=== PATIENT | male | born 1950 | race Caucasian/White ===

== ENCOUNTER → 2019-02-27 | Outpatient (CLI) | payer OTHER ==
[~2019-02-27] MED LIST: CATAPRES0.1 MG PO
== END ==
LOC: ULTRA 09:19
DX: R10.11 Right upper quadrant pain (principal)

== ENCOUNTER → 2019-03-18 | Outpatient (CLI) | payer OTHER | LOC: NUC 09:29 | DX: R10.11 Right upper quadrant pain (principal) ==

== ENCOUNTER 2019-03-29 05:21 | Observation (INO) | payer OTHER ==
[~2019-03-29] VITALS: Ht 265 cm; Wt 120.2 kg
[~2019-03-29 05:21] MED LIST changes: +AMLODIPINE BESY10 MG PO; +REFRESH PLUS1 EACH OPHTHALMIC; +VALSARTAN-HCTZ1 EAC3 PO
[2019-03-29 13:06] LABS: HEMATOCRIT 46.9 % (42.0-52.0); HEMOGLOBIN 16.2 gm/dL (14.0-18.0)
[2019-03-29 13:13] LABS: CALCIUM 9.7 mg/dL (8.5-10.1); CREATININE 0.9 mg/dL (0.7-1.3)
[2019-03-29 13:51] VITALS: BP 143/68
[2019-03-29 13:57] VITALS: BP 143/68
--- NOTE | 2019-03-29 15:52 | EKG ---
[address] [place] [address] ELECTROCARDIOGRAM REPORT Name: ARNEL BEASLEY Room #: 150-6 [facility]..#: [id number] ������������������ Admission: 03/29/19 ������������������ Attend Phys: Cheng Vizcarra MD Discharge: ������������������ Date of : 52 Report #: [id number] ����������������������������������������������������������������� [id number] THIS REPORT FOR: //name// [facility] Test Date: 2019-03-29 Test Time: 13:00:00 Pat Name: ARNEL BEASLEY Department: Room: 150 6 Gender: M Pick Up Attendant: PAN : 1950 Requested By: Cheng Vizcarra Order Number: [id number] MD: Tony Cortez Measurements Intervals Cucumber Rate: 53 P: 27 ME: 182 QRS: -37 QRSD: 160 T: 11 QT: 465 QTc: 437 Interpretive Statements Sinus rhythm Right bundle branch block Left ventricular hypertrophy Compared to ECG 03/05/2018 19:12:52 No significant changes Electronically Signed On 03-29-2019 15:52:01 CDT by Tony Cortez [email or web address] ��������������������������������������������� <ELECTRONICALLY SIGNED> ���������������������������������������� By: Tony Cortez MD, [facility] ��������������������������������������������� 03/29/19 1552 1300 1300 Tony Cortez MD, FACC /EPI
--- NOTE | 2019-03-29 18:47 | H ---
[facility] [place] [address] HISTORY AND PHYSICAL Name: ARNEL BEASLEY Room #: 150-6 [facility] M.R.#: [id number] Admission: 03/29/19 ������������������ Attend Phys: Cheng Vizcarra MD Discharge: ������������������ Date of : 52 Report #: [id number] THIS REPORT FOR: //name// CC: Guillermo Stevens DO Cheng Vizcarra PREOPERATIVE DIAGNOSES: Cholecystitis, acalculous with biliary dyskinesia. HISTORY OF PRESENT ILLNESS: The patient is a 69-year-old who has had a year of nausea. Two months ago, his nausea got worse. The patient had an abdominal ultrasound, which did not show any stones. PIPIDA scan showed a markedly abnormal ejection fraction of 13%. No reproduction of nausea with the Kinevac injection. The patient was seen in the office the day before he saw me, he complained of a sharp right upper quadrant pain going to his back. For the last 3 weeks, he feels like that if he ate something greasy such as hot dog, he will have issues and get into trouble. The patient complains of hiccup, belching. He also has a longstanding history of indigestion and heartburn. When he eats bland food, his symptoms are better. He is scared to eat meats at this point. The patient does not have any family history of gallbladder disease. The patient is here for gallbladder surgery. PAST MEDICAL HISTORY: He had atrial fib couple of years ago, but this was transient, went away. Saw Dr. Jc and wore a Holter monitor. He does have high blood pressure. No liver or kidney disease. No diabetes. No bleeding disorder. No history of blood clot. PAST SURGICAL HISTORY: The patient had urinary bladder stones removed with lithotripsy in 2015. Cataract, bilateral, January of this year. ALLERGIES: He is not allergic to anything. MEDICATIONS: Valsartan/HCTZ 320.12.5 one a day, amlodipine 10 mg 1 a day. FAMILY HISTORY: Father had kidney failure and from it. Mother had leukemia. SOCIAL HISTORY: The patient is a retired registered nurse. Does not smoke. He does not drink. REVIEW OF SYSTEMS: He has a right bundle branch block in his heart. No back pain. No numbness or weakness. PHYSICAL EXAMINATION: GENERAL: The patient is well-developed and well-nourished male, in no acute distress. HEENT: Pupils react to light. Extraocular muscles are intact. Sclerae are [facility] [address] [place] [address] HISTORY AND PHYSICAL Name: ARNEL BEASLEY Room #: 150-6 [facility]#: [id number] Admission: 03/29/19 ������������������ Attend Phys: Cheng Vizcarra MD Discharge: ������������������ Date of : 52 Report #: [id number] nonicteric. Oropharynx clear. NECK: Soft and supple, no masses, no JVD. LUNGS: Clear to auscultation. No wheezes. HEART: Regular rate and rhythm. No murmur or gallop. ABDOMEN: Soft and nontender. No mass, guarding, rigidity, rebound. No scar identified. EXTREMITIES: No cyanosis, clubbing, edema. IMPRESSION: The patient is a 69-year-old who has had a prolonged history of nausea and recently did have right upper quadrant pain. His symptoms are consistent with gallbladder disease. No stones were seen on ultrasound. The patient did have an abnormal PIPIDA scan with abnormal ejection fraction of 13%. The patient would benefit from laparoscopic cholecystectomy. The procedures discussed in detail. Laparoscopic approach was discussed. Risk of bleeding, infection, common bile duct injury and bile leak was discussed. The patient understands the procedure, risks involved and wishes to proceed. ��������������������������������������������� <ELECTRONICALLY SIGNED> ���������������������������������������� By: Cheng Vizcarra MD ��������������������������������������������� 03/29/19 1847 1117 1151 Cheng Vizcarra MD /nt
[2019-03-29 21:40] VITALS: BP 145/78
[2019-03-30] VITALS: BP 141/72
[2019-03-30 03:55] VITALS: BP 141/72
--- NOTE | 2019-03-30 06:49 | NUR ---
PT TRANSFERRED TO SENIOR SUITES ROOM 221 AT 0600. 0615 VS: 98.6; 156/95; 57; 18; 95% RA. PT TOLERATED TRANSFER WELL. DENIES PAIN, N/V/D. STATES HE HAS A LITTLE "DISCOMFORT" IN THE RUQ AND LLQ. 4 LAP SITES COVERED WITH BANDAIDS AT THIS TIME; C/D/I. RIGHT WRIST IV PATENT AND INFUSING D5 1/2NS WITH 10 MEQ KCL @ 80 ML/HR WITHOUT COMPLICATION. PT TRANSFERRED FROM WHEELCHAIR TO BED INDEPENDENTLY. SCDS ON AND CONNECTED. PT ORIENTED TO UNIT AND ROOM. CALL LIGHT WITHIN REACH. BED LOCKED AND IN LOWEST POSITION. PT ABLE TO CALL OUT APPROPRIATELY. PT CURRENTLY SITTING UP IN BED WATCHING TV IN NO ACUTE DISTRESS. WCTM.
[2019-03-30 08:15] VITALS: BP 139/86
--- NOTE | 2019-03-30 11:10 | NUR ---
ASSUMED PATIENT AND CARES AT 0715, PATIENT WOKE IN BED PARTIALLY UPRIGHT, PATIENT FRIENDLY AND TALKATIVE, A&OX4, DENIES PAIN AND REPORTS LITTLE DISCOMFORT OR SORENESS TO ABD, RIGHT WRIST IV INTACT AND PATENT WITH FLUIDS CURRENTLY INFUSING, INDEPENDENT WITH ADLS AND AMBULATION, NO DEVICE USED, BANDAIDS DRESSINGS TO X4 INCISION SITES C/D/I, SBA, WILL ADVANCED DIET THIS MORNING FROM CLEAR LIQUID DIET, PATIENT TOLERATED CLEAR LIQUIDS WELL, SCDS TO BLE IN PLACE, FALL PRECAUTIONS IN PLACE, PERSONAL BELONGINGS AND CALL LIGHT IN REACH, WILL CONTINUE TO MONITOR
[2019-03-30] MEDS ORDERED: HYDROCODONE-AP1 EAC6 PO (12:43)
[2019-03-30 13:34] VITALS: BP 139/86
--- NOTE | 2019-03-30 13:49 | NUR ---
PATIENT DISCHARGED HOME WITH SELF CARE, RIGHT WRIST IV REMOVED WITH GAUZE AND TAPE PLACED, NURSE AND PATIENT DISUSSED DISCHARGE INSTRUCTIONS AND MEDICATIONS, ALL BELONGINGS PACKED TO GO, PATIENT FRIEND ARRIVED TO TAKE HIM HOME, METAPHYSICIAN TOOK PATIENT TO MEDICAL MALL ENTRANCE PER WHEELCHAIR
--- NOTE | 2019-04-02 18:05 | PATH ---
[facility] [address] [place] [address] PATHOLOGY RPT PROCEDURE Name: MEJIA BEASLEY Room #: 221-P [facility] Gabriel M.RDebbie#: [id number] ������������������ Admission: 03/29/19 ������������������ Date of : 52 Discharge: 03/30/19 Report #: [id number] Path Case #: [id number] [facility] Accession Number: [id number] . 01 Material submitted: . gallbladder - GALLBLADDER . 01 Clinical history: . Cholecystitis . 02 Diagnosis: Gallbladder, cholecystectomy: - Mild chronic cholecystitis. - Cholesterolosis with numerous cholesterol polyps. - Negative for dysplasia or malignancy. (IUV:talia; 04/02/2019) QMS/04/02/2019 . 02 Electronically signed: . Iza Cornejo MD, Pathologist NPI- [id number] . 01 Gross description: . Received in formalin labeled "Mejia Baesley, gallbladder," is a previously opened gallbladder measuring 7.3 x 4.3 x 1.6 cm in greatest dimensions. The serosal surface is wrinkled to shaggy, dark yellow-green and largely adipose-covered in appearance. The mucosal surface is granular and dark green in appearance, stippled with prominent yellow highlights and measuring 0.1 cm in thickness with a gallbladder wall thickness of up to 0.6 cm including attached adipose tissue. Diffuse pale yellow possible polyps are noted on the mucosal surface, ranging from 0.1 to 0.2 cm in maximum dimension and extending to within 1.2 cm of the infundibulum. Calculi are not present within the specimen or specimen container. Restorative Care Technician sections of the infundibulum, body and fundus are submitted in cassette A1, to representatively include the possible polyps. ([facility]; 04/01/2019) XDC/XDC . 02 Pathologist provided ICD-10: K81.1, K82.4 . 02 CPT . 789965 Specimen Comment: A courtesy copy of this report has been sent to Specimen Comment: [phone], . Specimen Comment: Report sent to / [place] [address] PATHOLOGY RPT PROCEDURE Name: MEJIA BEASLEY Room #: 221-P [facility] M.RDebbie#: [id number] ������������������ Admission: 03/29/19 ������������������ Date of : 52 Discharge: 03/30/19 Report #: [id number] Path Case #: [id number] Performed at: 01 [facility] [address], [place], [place] [id number] MD Tico Jack MD Phone: [phone] Performed at: [address] [id number] MD Iza Cornejo MD Phone: [phone]
--- NOTE | 2019-04-20 12:09 | O ---
[facility] [place] [address] OPERATIVE REPORT Name: ARENL BEASLEY Room #: 221-P [facility] Gabriel Grover#: [id number] Admission: 03/29/19 ������������������ Attend Phys: Cheng Vizcarra MD Discharge: 03/30/19 ������������������ Date of : 52 Report #: [id number] THIS REPORT FOR: //name// CC: Guillermo Marquez DATE OF SERVICE: 03/29/2019 PREOPERATIVE DIAGNOSIS: Cholecystitis, acalculous. POSTOPERATIVE DIAGNOSIS: Cholecystitis with severe cholesterolosis. PROCEDURE: Laparoscopic cholecystectomy and cholangiogram. ESTIMATED BLOOD LOSS: 10 mL. SURGEON: Cheng Vizcarra M.D. COMPLICATIONS: None. DESCRIPTION OF PROCEDURE: With the patient under general anesthesia, abdomen was prepped and draped in sterile fashion. The patient did receive IV antibiotics. Timeout was performed. A 0.25% Marcaine was used to anesthetize the skin above the umbilicus. Curvilinear incision was made about 2 cm. Fascia was identified. Fascia was grasped with hemostat. Fascia was then opened under visualization between the hemostat. 0 Vicryl suture was placed on the fascia edges for retraction. Veress needle was then placed through the peritoneum. Abdominal cavity was insufflated with CO2. After creating pneumoperitoneum, an 11 mm trocar was placed into the pneumoperitoneum without harming any underlying tissue. Two 5 mm trocars were placed in the right upper quadrant, another 5 mm trocar was placed in the right epigastrium. The patient was placed in reverse Trendelenburg position with the right side tilted up. Gallbladder was identified. The gallbladder fundus was lifted over the liver. The proximal part of the gallbladder had significant amount of fat covering it. The fat was dissected free. The gallbladder neck was identified. The cystic duct was then isolated. The cystic artery adjacent to this was also isolated and free. A clip was placed in junction of cystic duct to the gallbladder. Opening was made in the cystic duct. Cholangiogram catheter was inserted. The patient's fluoroscopic cholangiogram was obtained. Common bile duct filled out well. No filling defect in the common duct. The cholangiogram catheter was identified in the cystic duct. No harm to the common duct was visualized. Catheter was removed. The proximal cystic duct was then clipped x 2 and then divided. The cystic artery adjacent to this was clipped x 2 proximally and 1 distally and then divided. There was a pretty small artery. There is a larger posterior lateral cystic artery. This was isolated, clipped x 2 proximally and [address] [address] OPERATIVE REPORT Name: ARNEL BEASLEY Room #: 221-P [facility] Grover#: [id number] Admission: 03/29/19 ������������������ Attend Phys: Cheng Vizcarra MD Discharge: 03/30/19 ������������������ Date of : 52 Report #: [id number] and then divided. Gallbladder was freed from the liver bed. The gallbladder was dissected free without difficulty and then removed through the 11 mm trocar site without difficulty. The gallbladder was opened off the field, contained numerous cholesterol material. Some of these, I would have thought would be seen on ultrasound. Some of these measured about 2-3 mm and floating in the bile. Some of the cholesterol stuck on the wall. Liver bed was checked, hemostasis obtained. Irrigation was aspirated out. Trocars removed. CO2 was evacuated as much as possible. The fascia defect in the umbilicus was closed with [id number]-la-egohq 0 Vicryl x 2. Skin was irrigated. Skin was then closed with 5-0 PDS. Mastisol, Steri-Strip, Band-Aids were applied. The patient tolerated the procedure well and was taken to recovery room. ��������������������������������������������� <ELECTRONICALLY SIGNED> ���������������������������������������� By: Cheng Vizcarra MD ��������������������������������������������� 04/20/19 1209 1029 1152 Cheng Vizcarra MD /nt
== END 2019-03-30 13:54 | disposition home or self-care (01) ==
LOC: OR 05:21 → TBA 05:21 → OR 09:59 → 4E 19:12 → OR 19:13 → SICU 03-30 06:04
PROVIDERS: ADMIT Surgery
DX: K81.9 Cholecystitis, unspecified (principal); K82.8 Other specified diseases of gallbladder; Z98.890 Other specified postprocedural states
CPT/HCPCS: 10783; 50010; 50101; 50411; 50555; 50558; 51489; 53307; 53310; 55245; 55317; 56462; 56525; 56526; 62110; 62900; 70005